=== PATIENT | female | born 1990 | race Caucasian/White ===

== ENCOUNTER 2017-01-29 19:22 | Emergency (ER) | payer OTHER ==
[~2017-01-29] VITALS: Ht 162.6 cm; Wt 72.6 kg
[~2017-01-29 19:22] MED LIST: NORCO 5-325 TA1 EACH PO; TRINATE TABLET1 TAB PO; ZOFRAN ODT4 MG PO; ZOLOFT25 MG PO
[2017-01-29] MEDS ORDERED: VISTARIL 25 MG25 M1 PO (19:26)
[2017-01-29] MEDS ORDERED: MOBIC15 MG PO (20:01)
[2017-01-29] MEDS ORDERED: PREDNISONE 20 M20 MG PO (20:01)
[2017-01-29 20:40] VITALS: BP 107/65
== END 2017-01-29 20:53 | disposition home or self-care (01) ==
LOC: ER 19:22
DX: S01.01XA Laceration without foreign body of scalp, initial encounter (principal); L23.9 Allergic contact dermatitis, unspecified cause; F17.210 Nicotine dependence, cigarettes, uncomplicated; W20.8XXA Other cause of strike by thrown, projected or falling object, initial encounter; Y93.89 Activity, other specified; Y92.89 Other specified places as the place of occurrence of the external cause; Y99.9 Unspecified external cause status

== ENCOUNTER 2019-12-09 07:15 | Emergency (ER) | payer OTHER ==
[~2019-12-09] VITALS: Ht 157.5 cm; Wt 68.0 kg
[~2019-12-09 07:15] MED LIST changes: +CITRATE OF MAG296 ML PO; +KEFLEX500 M1 PO; +KEFLEX500 MG PO; +MOBIC15 MG PO; +NAPROSYN500 MG PO; +PREDNISONE 20 M20 MG PO; +TRAMADOL 50 MG50 MG PO; +VISTARIL 25 MG25 M1 PO
[2019-12-09 08:27] VITALS: BP 126/75
== END 2019-12-09 08:40 | disposition home or self-care (01) ==
LOC: ER 07:15
DX: S63.592A Other specified sprain of left wrist, initial encounter (principal); F17.210 Nicotine dependence, cigarettes, uncomplicated; Z90.49 Acquired absence of other specified parts of digestive tract; Z88.5 Allergy status to narcotic agent; Y08.89XA Assault by other specified means, initial encounter; Y93.89 Activity, other specified; Y92.89 Other specified places as the place of occurrence of the external cause; Y99.8 Other external cause status

== ENCOUNTER 2020-02-11 16:59 | Emergency (ER) | payer OTHER ==
[~2020-02-11] VITALS: Ht 154.9 cm; Wt 56.7 kg
[2020-02-11 17:20] LABS: URINE BILIRUBIN NEGATIVE (Negative); URINE BLOOD NEGATIVE (Negative); URINE CLARITY CLEAR; URINE COLOR YELLOW; URINE GLUCOSE-RANDOM* NEGATIVE (Negative); URINE KETONES NEGATIVE (Negative); URINE LEUKOCYTES-REFLEX NEGATIVE (Negative); URINE NITRITE-REFLEX NEGATIVE (Negative); URINE PROTEIN (DIPSTICK) TRACE (Negative); URINE SPECIFIC GRAVITY 1.025 (1.005-1.035); URINE UROBILINOGEN 0.2 E.U./dl (0.2-1.0)
[2020-02-11] MEDS ORDERED: DOXYCYCLINE 10100 M2 PO (17:28)
[2020-02-11 17:58] LABS: ABSOLUTE NEUTROPHILS 8.1 thou/uL (1.4-8.2); BASOPHILS 0.7 % (0.0-2.0); EOSINOPHILS 0.4 % (0.0-3.0); HEMATOCRIT 41.1 % (37.0-47.0); LYMPHOCYTES 23.8 % (24.0-44.0); MCH 31.2 pg (26.0-34.0); MCHC 34.1 g/dL (28.0-37.0); MCV 91.4 fL (80.0-100.0); MONOCYTES 6.5 % (1.0-8.0); PLATELET COUNT 463 thou/uL (150-400); POLYS 68.6 % (36.0-66.0); RBC 4.49 mil/uL (4.20-5.00); RDW 12.9 % (10.5-14.5); WBC 11.9 thou/uL (4.0-11.0)
[2020-02-11 18:19] LABS: CALCIUM 10.2 mg/dL (8.5-10.1); CREATININE 0.9 mg/dL (0.6-1.0); POTASSIUM 3.4 mmol/L (3.5-5.1)
[2020-02-11 18:23] LABS: ALBUMIN 4.6 g/dL (3.4-5.0); TOTAL BILIRUBIN 0.5 mg/dL (0.2-1.0); TOTAL PROTEIN 9.1 g/dL (6.4-8.2)
[2020-02-11] MEDS ORDERED: DOXYCYCLINE 10100 MG PO (18:50)
[2020-02-11 19:40] VITALS: BP 127/66
--- NOTE | 2020-02-12 11:33 | EKG ---
[facility] [place] [address] ELECTROCARDIOGRAM REPORT Name: CHARLES PEREZ Clif Room #: DEP 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
== END 2020-02-11 23:18 | disposition home or self-care (01) ==
LOC: ER 16:59
PROVIDERS: Physician Assistant
DX: S02.609A Fracture of mandible, unspecified, initial encounter for closed fracture (principal); L03.113 Cellulitis of right upper limb; M54.2 Cervicalgia; R51 Headache; F17.210 Nicotine dependence, cigarettes, uncomplicated; Z90.49 Acquired absence of other specified parts of digestive tract; Z79.899 Other long term (current) drug therapy; Z88.6 Allergy status to analgesic agent; Z91.19 Patient's noncompliance with other medical treatment and regimen; X58.XXXA Exposure to other specified factors, initial encounter; Y93.89 Activity, other specified; Y92.89 Other specified places as the place of occurrence of the external cause; Y99.8 Other external cause status

== ENCOUNTER 2020-07-13 14:38 | Emergency (ER) | payer OTHER ==
[~2020-07-13] VITALS: Ht 157.5 cm; Wt 59.0 kg
[~2020-07-13 14:38] MED LIST changes: +DOXYCYCLINE 10100 M2 PO; +DOXYCYCLINE 10100 MG PO
[2020-07-13 16:48] LABS: ABSOLUTE NEUTROPHILS 5.3 thou/uL (1.4-8.2); BASOPHILS 0.6 % (0.0-2.0); EOSINOPHILS 2.9 % (0.0-3.0); HEMATOCRIT 39.7 % (37.0-47.0); HEMOGLOBIN 13.4 gm/dL (12.0-15.0); LYMPHOCYTES 27.5 % (24.0-44.0); MCH 30.7 pg (26.0-34.0); MCHC 33.7 g/dL (28.0-37.0); MCV 91.1 fL (80.0-100.0); MONOCYTES 9.3 % (1.0-8.0); PLATELET COUNT 341 thou/uL (150-400); POLYS 59.7 % (36.0-66.0); RBC 4.36 mil/uL (4.20-5.00); RDW 13.6 % (10.5-14.5); WBC 8.9 thou/uL (4.0-11.0)
[2020-07-13 16:55] LABS: ANION GAP 6 mmol/L (7-16); BUN 7 mg/dL (7-18); CALCIUM 8.5 mg/dL (8.5-10.1); CHLORIDE 105 mmol/L (98-107); CO2 31 mmol/L (21-32); CREATININE 0.6 mg/dL (0.6-1.0); GLUCOSE 77 mg/dL (74-106); POTASSIUM 3.9 mmol/L (3.5-5.1); SODIUM 142 mmol/L (136-145)
[2020-07-13 17:03] LABS: ALBUMIN 3.3 g/dL (3.4-5.0); DIRECT BILIRUBIN < 0.1 mg/dL (<0.1-0.2); SGOT 24 U/L (15-37); SGPT 20 U/L (30-65); TOTAL BILIRUBIN 0.2 mg/dL (0.2-1.0)
[2020-07-13] MEDS ORDERED: BACTRIM DS TAB1 EACH PO ×2 (18:48→19:23)
[2020-07-13] MEDS ORDERED: MOBIC15 MG PO ×2 (18:48→19:23)
[2020-07-13 19:14] VITALS: BP 97/48
== END 2020-07-13 19:14 | disposition home or self-care (01) ==
LOC: ER 14:38
PROVIDERS: Emergency Medicine
DX: L02.11 Cutaneous abscess of neck (principal); L02.413 Cutaneous abscess of right upper limb; F17.210 Nicotine dependence, cigarettes, uncomplicated; Z90.49 Acquired absence of other specified parts of digestive tract; Z79.899 Other long term (current) drug therapy; Z79.2 Long term (current) use of antibiotics; Z88.5 Allergy status to narcotic agent

== ENCOUNTER 2020-12-07 10:58 | Emergency (ER) | payer OTHER ==
[~2020-12-07] VITALS: Ht 157.5 cm; Wt 65.8 kg
[2020-12-07 10:58] VITALS: BP 126/79
[~2020-12-07 10:58] MED LIST changes: +BACTRIM DS TAB1 EACH PO
== END 2020-12-07 12:49 | disposition left against medical advice (07) ==
LOC: ER 10:58
DX: L03.012 Cellulitis of left finger (principal); F17.210 Nicotine dependence, cigarettes, uncomplicated; Z90.49 Acquired absence of other specified parts of digestive tract; Z79.2 Long term (current) use of antibiotics; Z79.899 Other long term (current) drug therapy; Z88.5 Allergy status to narcotic agent

== ENCOUNTER 2020-12-07 14:36 | Inpatient (IN) | payer OTHER ==
[~2020-12-07] VITALS: Ht 157.5 cm; Wt 59.0 kg
[2020-12-07 16:48] LABS: HEMATOCRIT 34.2 % (37.0-47.0); HEMOGLOBIN 11.8 gm/dL (12.0-15.0); MCHC 34.6 g/dL (28.0-37.0); MCV 89.6 fL (80.0-100.0); RBC 3.82 mil/uL (4.20-5.00); RDW 13.4 % (10.5-14.5); WBC 11.5 thou/uL (4.0-11.0)
[2020-12-07 16:52] LABS: CALCIUM 8.9 mg/dL (8.5-10.1); CREATININE 0.7 mg/dL (0.6-1.0); POTASSIUM 3.9 mmol/L (3.5-5.1)
--- NOTE | 2020-12-07 19:07 | NUR ---
SURGERY AT BEDSIDE.
[2020-12-07 19:16] VITALS: BP 124/78
[2020-12-07 19:23] LABS: AMP/METHAMP POSITIVE (Negative); BARBITURATES Negative (Negative); BENZODIAZEPINES Negative (Negative); COCAINE Negative (Negative); METHADONE Negative (Negative); OPIATES Negative (Negative); PCP Negative (Negative)
[2020-12-07 21:19] VITALS: BP 133/84
--- NOTE | 2020-12-08 00:07 | NUR ---
PT ADMITTED TO THE UNIT AT APPROXIMATELY 2100. PT IS A/O X4 AND IS UP WITH SBA TO THE BR. ROOM AIR, VSS. PT C/O PAIN. PRN PAIN MEDICATION GIVEN DIRECTED. ADMISSION IS COMPLETED. FALL PRECAUTIONS IN PLACE, CALL LIGHT IS WITHIN REACH. WILL CONTINUE TO MONITOR.
[2020-12-08 06:43] LABS: ABSOLUTE NEUTROPHILS 6.8 thou/uL (1.4-8.2); BASOPHILS 0.8 % (0.0-2.0); EOSINOPHILS 0.1 % (0.0-3.0); HEMATOCRIT 35.2 % (37.0-47.0); HEMOGLOBIN 11.9 gm/dL (12.0-15.0); LYMPHOCYTES 16.7 % (24.0-44.0); MCH 30.8 pg (26.0-34.0); MCHC 33.9 g/dL (28.0-37.0); MCV 90.9 fL (80.0-100.0); MONOCYTES 5.8 % (1.0-8.0); PLATELET COUNT 403 thou/uL (150-400); POLYS 76.6 % (36.0-66.0); RBC 3.87 mil/uL (4.20-5.00); RDW 13.7 % (10.5-14.5); WBC 8.8 thou/uL (4.0-11.0)
[2020-12-08 07:09] LABS: CALCIUM 8.3 mg/dL (8.5-10.1); CREATININE 0.6 mg/dL (0.6-1.0); MAGNESIUM 1.7 mg/dL (1.8-2.4)
[2020-12-08 07:39] LABS: FOLIC ACID 19.2 ng/mL (8.6-58.9)
[2020-12-08 08:50] VITALS: BP 114/65
--- NOTE | 2020-12-08 09:53 | HC ---
[facility] [place] [address] CONSULTATION Name: CHARLES PEREZ Room #: 436-P ADM IN M.R.#: [id number] Admission: 12/07/20 Attend Phys: Trinity Wolfe MD Discharge: Date of : [birth year] Report #: [id number] THIS REPORT FOR: cc: FAM - Family physician unknown FAM - Family physician unknown Michael Rojas MD ~ DATE OF SERVICE: 12/08/2020 INFECTIOUS DISEASE CONSULTATION ATTENDING PHYSICIAN: Dr. Wolfe. REASON FOR EVALUATION: Suspected deep infection involving her left thumb, I believe she was bit by a spider. HISTORY OF PRESENT ILLNESS: She is actually quite somnolent and unable to give details of her history, has been in the Emergency Room twice on the day of admission. She had left previously when she was told she may need surgery. On return, a plain film was done, which showed no bony changes. Lactic acid was 1.2. CRP of 28.8. Drug screen was positive for methamphetamine. Coronavirus testing was negative as well. Due to the clinical picture, she did undergo operative I and D of left thumb abscess in the flexor tendon sheath. Cultures are pending. Empirically started on antimicrobials with cefazolin, had been given Zosyn, vancomycin as well. ALLERGIES: MORPHINE. CURRENT MEDICATIONS: Include enoxaparin, Zosyn, acetaminophen, ondansetron as needed, cefazolin. PAST MEDICAL HISTORY: Previous cholecystectomy, left knee surgeries, history of depression. SOCIAL HISTORY: Illicit drug use. Smokes cigarettes 1 pack a day for 15 years, occasional ethanol. FAMILY HISTORY: Noncontributory. REVIEW OF SYSTEMS: Limited due to her somnolence. PHYSICAL EXAMINATION: GENERAL: She appears somewhat chronically ill, undernourished, is difficult to arouse. VITAL SIGNS: Temperature 97.7, pulse 88, respirations 18, blood pressure 133/84. [facility] [address] [place] [address] CONSULTATION Name: CHARLES PEREZ Room #: 436-P [facility].#: [id number] Admission: 12/07/20 Attend Phys: Trinity Wolfe MD Discharge: Date of : [birth year] Report #: [id number] SKIN: Warm, dry, no rashes. HEENT: Normocephalic. NECK: Supple. LUNGS: Diminished breath sounds. HEART: Regular. I do not appreciate a murmur. ABDOMEN: Soft, no apparent peritoneal signs. Left hand has a surgical dressing in place. GENITOURINARY AND RECTAL: Deferred. LABORATORY DATA: CBC: White count of 8.8, H and H 11.9 and 35.2, platelets of 403. Electrolytes: Sodium 137, potassium 4.0, chloride 103, bicarbonate is 26, anion gap of 8, BUN and creatinine 10 and 0.6. Coronavirus testing was negative. ASSESSMENT AND PLAN: Left thumb deep infection, perhaps related to a spider bite or other traumatic injury. We will continue empiric therapy. Await culture results. Wound care as prescribed. We will monitor for evidence of withdrawal and incentive spirometry if she is able. It is difficult to ascertain where she is going to have difficulty with pain at this point. We will monitor expectantly. <ELECTRONICALLY SIGNED> By: Michael Rojas MD 12/08/20 0953 0803 0844 Michael Rojas MD /nt
[2020-12-08 17:10] VITALS: BP 108/68
--- NOTE | 2020-12-08 18:17 | NUR ---
PT ALERT X ORIENTED X 4. ON ROOM AIR. DID DRESSING CHANGE TODAY. PAIN CONTROLLED BY PAIN MEDICINE. WILL CONT TO MONITOR.
[2020-12-08 20:30] VITALS: BP 116/62
--- NOTE | 2020-12-09 04:47 | NUR ---
Assumed pt care at 1900. A/OX4,VSS. Pt is up ad malini in room,encouraged to call as needed for help d/t IV pole and verbalizes understanding. C/o pain to left thumb 04/23,medicated with [place] with relief reported. DSG to left thumb C/D/I,slightly swollen,CMS intact. Pt resting quietly at this time,will continue to monitor pt.
[2020-12-09 07:25] LABS: HEMATOCRIT 33.1 % (37.0-47.0); HEMOGLOBIN 11.3 gm/dL (12.0-15.0); MCH 31.2 pg (26.0-34.0); MCHC 34.2 g/dL (28.0-37.0); MCV 91.2 fL (80.0-100.0); RBC 3.63 mil/uL (4.20-5.00); RDW 13.7 % (10.5-14.5); WBC 6.8 thou/uL (4.0-11.0)
[2020-12-09 07:36] LABS: CALCIUM 8.1 mg/dL (8.5-10.1); CREATININE 0.6 mg/dL (0.6-1.0); POTASSIUM 4.2 mmol/L (3.5-5.1)
[2020-12-09 08:12] VITALS: BP 107/62
--- NOTE | 2020-12-09 09:55 | HC ---
[facility] [address] [place] [address] CONSULTATION Name: CHARLES PEREZ Room #: 436- ADM IN M.R.#: [id number] Admission: 12/07/20 Attend Phys: Trinity Wolfe MD Discharge: Date of : [birth year] Report #: [id number] THIS REPORT FOR: cc: FAM - Family physician unknown FAM - Family physician unknown Sari Barnes MD ~ DATE OF SERVICE: 12/07/2020 HISTORY OF PRESENT ILLNESS: The patient is a 30-year-old female with a changing story. She reported to the ER advanced practitioner that she thought she had a spider bite. She reported to me that maybe there was glass in her thumb. She reported the wound 3 days ago. Upon discussion with the male present with her today, she may have been in an attic where they were moving a glass mirror or glass TV, although there was some type of information about a glass store involved, it is a very unusual and somewhat confusing story. It was very difficult to get any information. She reported significant increase in pain and swelling started approximately 2 days ago. Yesterday, she tried to "dig around to find any glass. None was found." Reports of some purulent drainage. She reported being at [facility] last night at midnight. The patient did not communicate well at all. She was lying in the bed, intermittently appeared to be falling asleep or not paying attention. When questions were asked, she was very quiet in her answers and had difficulty answering. She reports pain in the thumb and pain with movement. No other pain. Denies numbness or tingling. REVIEW OF SYSTEMS: NEUROLOGIC: Denies numbness or tingling. MUSCULOSKELETAL: Denies other acute injury. She has 2 scars on the dorsal aspect of her right hand. She reports one of those was from a childhood injury and the other one was from a bite. PHYSICAL EXAMINATION: GENERAL: The patient is awake, intermittently alert. Again, the exam is very difficult to get any cooperation from this patient. EXTREMITIES: Examination of her left thumb shows a wound volarly at the IP flexion crease. It measures 1 cm. No purulent fluid is noted now. There is significant amount of edema, dryb-xo-tuoyvkha erythema, significant amount of tenderness. The FPL function is difficult to determine secondary to the patient's difficulty cooperating with any type of exam or history. There is tenderness volarly along the flexor tendon sheath. There is no other significant tenderness in the hand. She has brisk capillary refill. Sensation is intact to light touch. LABORATORY DATA: White blood cell count 11.5, hemoglobin 11.8, hematocrit 34.2, [address] [address] CONSULTATION Name: CHARLES PEREZ Room #: [facility]- ADM IN M.R.#: [id number] Admission: 12/07/20 Attend Phys: Trinity Wolfe MD Discharge: Date of : 88 Report #: [id number] platelet count 449. ESR is elevated at 34. CRP is elevated at 28.8. PAST MEDICAL HISTORY: Unable to be obtained. ALLERGIES: No known drug allergies. SOCIAL HISTORY: Smokes a pack a day, does not work, does not report a normal occupation. Drinks alcohol occasionally per them. Denies recreational drug. SURGICAL HISTORY: Knee surgery. ALLERGIES: She reports no known drug allergies. Chart says morphine. RADIOGRAPHS: AP, lateral and oblique view of the left thumb show no evidence of foreign body, no acute osseous abnormality. IMPRESSION AND PLAN: Left thumb volar flexor tenosynovitis with possible foreign body any history of purulent fluid. Discussed the diagnosis as well as treatment options with the patient. At this point, I would recommend surgical debridement. The risks, benefits, alternatives and complications were discussed including but not limited to inability to resolve the infection necessitating more surgery, infection, damage to blood vessels or nerves, wound healing problems and stiffness. Informed consent was obtained. The questions were encouraged and answered. We will proceed with surgery. <ELECTRONICALLY SIGNED> By: Sari Barnes MD 12/09/20 0955 [id number] Sari Barnes MD /nt
--- NOTE | 2020-12-09 14:57 | NUR ---
PT ASKED TO TAKE SHOWER AFTER LUNCH AND ALSO ASKED FOR PAIN MEDICATION. PT AGREED TO TAKE PAIN MEDICATION AFTER SHOWER. PT'S HAND UNWRAPPED AND CLEANED WITH SOAP AND WATER. NEW GUAZE APPLIED AND HAND WRAPPED IN KERLIX. RN TOLD PT THAT WE WILL RE WASH AND CLEAN HAND AGAIN THIS AFTERNOON. PT GIVEN PO PAIN MEDICATION AND AT PAIN REASSESSMENT PT WAS AND IS CURRENTLY ASLEEP. WILL CONTINUE TO MONITOR PT.
[2020-12-09 16:45] VITALS: BP 107/78
--- NOTE | 2020-12-09 17:05 | NUR ---
DRESSING REMOVED FOR SECOND TIME THIS SHIFT, NO DRAINAGE NOTED AT THIS TIME. PT WASHED HANDS WITH SOAP AND WATER FOR 3 MINUTES ORDERED AND NEW GAUZE AND NEW KERLIX APPLIED.
--- NOTE | 2020-12-09 19:20 | NUR ---
REPORT GIVEN TO ON COMING NURSE ARABELLA. PT IS TO HAVE ONE MORE HAND WASH AND DRESSING CHANGE TODAY. THIS INFO WAS COMMUNICATED TO NIGHT NURSE AND PATIENT.
[2020-12-09 22:51] VITALS: BP 123/76
--- NOTE | 2020-12-09 23:47 | NUR ---
PT AOX4, NOTED TO BE LETHARGIC WITH RESTLESSNESS. PT EXPRESSES INCREASE IN ANXIETY AND RESTLESSNESS WITH PAIN. PT RECEIVING PRN IV ATIVAN Q6HR. PT REPORTS 8/10 PAIN IN LEFT HAND. PT RECEIVING PRN NORCO Q4HR WITH PRN IV TORADOL Q8HR X3, PRN IV FENTANYL Q4HR X3, AND PRN PO APAP Q4HR AVAILABLE. PT REPORTS SOB WHILE AT REST, NO DESATURATIONS NOTED, HOB ELEVATED, RELIEF OBTAINED. PT TOLERATING PO INTAKE OF FLUIDS AND REGULAR DIET WITHOUT ISSUE. PT WITHOUT NAUSEA OR EMESIS. PT AMBULATING INDEPENDENTLY IN ROOM AND TO BATHROOM, RESTING IN BED OTHERWISE. FREQUENT REPOSITIONING ENCOURAGED WHILE IN BED, PT SHIFTING INDEPENDENTLY WHILE IN BED. SENSATION INTACT, CAPILLARY REFILL LESS THAN 3SEC IN ALL EXTREMITIES. WOUND CARE COMPLETED; PT OBSERVED APPLYING PERSONAL ALBERT FROM PURSE, PT REDIRECTED, SITE WIPED CLEAN, WASHED AGAIN WITH SOAP AND WATER, GAUZE IN PLACE, WRAPPED WITH KERLIX, SECURED WITH TAPE. PT ENCOURAGED TO NOTIFY STAFF FOR ALL NEEDS, CALL LIGHT WITHIN REACH, BED LOCKED IN LOWEST POSITION, ROOM REMAINS NEAR NURSES STATION, FREQUENT MONITORING WILL CONTINUE.
[2020-12-10 07:15] VITALS: BP 104/70
[2020-12-10] MEDS ORDERED: MINOCYCLINE HC100 M2 PO (11:23)
--- NOTE | 2020-12-10 11:24 | NUR ---
ASSUMED PT CARE AROUND 0700. PT ALERT X ORIENTED X4. ON ROOM AIR. VSS. PAIN CONTROLLED BY PAIN MEDICINE. WOUND DRESSINGS DONE. IV RT FOREARM WITH ANTIBIOTICS RUNNING.ON REGULAR DIET. PATIENT'S GOAL FOR THE DAY IS TO GO HOME. NO BM TODAY. FALL PRECAUTION IN PLACE. CALL LIGHT IN REACH. WILL CONTINUE TO MONITOR.
[2020-12-10 12:29] VITALS: BP 104/70
--- NOTE | 2020-12-10 13:01 | NUR ---
ASSESSMENT: CM REVIEWED CHART AND SPOKE WITH PATIENT. PT IS ALERT AND ORIENTED X4. PT WAS ADMITTED FOR LEFT THUMB ABSESS AND IS S/P I &D. PT HAS HX OF METH USE AND UDS WAS POSITIVE. CM SPOKE WITH PATIENT. PT REPORTS LIVING IN AN APT WITH HER BOYFRIEND. PT REPORTS NO STEPS TO ENTER OR ONCE INSIDE. PT REPORTS BEING FULLY INDEPENDENT WITH ADLS AND AMBULATION. PT IS SHOWING PATIENT PAY. PT REPORTS HAVING NO INSURANCE AND IS NOT CURRENTLY EMPLOYED. PT REPORTS SHE DOES HAVE A PCP DR. DAX LOZANO THAT SHE SEES AT [facility]. CM DISCUSSED ROLE. PT DOES NOT ANTICIPATE HAVING AND NEEDS FROM CM. ID HAS BEEN CONSULTED AND AWAITING FINAL RECS FOR ANTIBIOTICS. PT IS POSSIBLE DISCHARGE TODAY IF ABLE TO SWITCH TO ORAL ANTIBIOTIC.
--- NOTE | 2020-12-10 13:04 | NUR ---
ON-GOING ASSESSMENT: CM LEFT VM WITH SHAJI AT [facility] BED IN ATTEMPTS TO GET AN UPDATE. CM RECEIVED A CALL FROM [facility] WHO IS COVERING AND REPORTS THEY ARE STILL AWAITING INSURANCE AUTH AT THIS TIME. CM FAXED UPDATED CLINICAL WELL NEGATIVE COVID TEST TO [facility] AND AWAITING INPUT. 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 AWAITING INSURANCE AUTH AT THIS TIME.
== END 2020-12-10 13:43 | disposition home or self-care (01) | DRG 580 ==
LOC: ER 14:36 → EROBS 18:49 → 4S 19:18
PROVIDERS: Hospitalist; Nurse Practitioner; Nurse Practitioner Family; ADMIT Internal Medicine; ATTEND Internal Medicine
PROC: 0JBK0ZZ Excision of Left Hand Subcutaneous Tissue and Fascia, Open Approach (ICD-10-PCS; principal; 2020-12-07)
DX: L02.512 Cutaneous abscess of left hand (principal); M00.9 Pyogenic arthritis, unspecified; E46 Unspecified protein-calorie malnutrition; F17.210 Nicotine dependence, cigarettes, uncomplicated; M65.842 Other synovitis and tenosynovitis, left hand; D64.9 Anemia, unspecified; F15.10 Other stimulant abuse, uncomplicated; F32.9 Major depressive disorder, single episode, unspecified; Z20.822 Contact with and (suspected) exposure to COVID-19; Z90.49 Acquired absence of other specified parts of digestive tract; Z79.899 Other long term (current) drug therapy; Z88.6 Allergy status to analgesic agent; Z68.23 Body mass index [BMI] 23.0-23.9, adult; Z28.21 Immunization not carried out because of patient refusal
CPT/HCPCS: 10102; 50101; 50386; 57006; 57091; 57178; 62110; 62900

== ENCOUNTER 2020-12-26 23:18 | Emergency (ER) | payer OTHER ==
[~2020-12-26] VITALS: Ht 160 cm; Wt 63.5 kg
[~2020-12-26 23:18] MED LIST changes: +MINOCYCLINE HC100 M2 PO
[2020-12-27 01:07] LABS: ABSOLUTE NEUTROPHILS 5.2 thou/uL (1.4-8.2); BASOPHILS 0.9 % (0.0-2.0); EOSINOPHILS 1.4 % (0.0-3.0); HEMATOCRIT 38.6 % (37.0-47.0); HEMOGLOBIN 13.1 gm/dL (12.0-15.0); LYMPHOCYTES 28.3 % (24.0-44.0); MCH 30.8 pg (26.0-34.0); MCHC 33.8 g/dL (28.0-37.0); MCV 90.9 fL (80.0-100.0); MONOCYTES 7.3 % (1.0-8.0); PLATELET COUNT 402 thou/uL (150-400); POLYS 62.1 % (36.0-66.0); RBC 4.24 mil/uL (4.20-5.00); RDW 13.5 % (10.5-14.5); WBC 8.5 thou/uL (4.0-11.0)
[2020-12-27 01:16] LABS: CALCIUM 8.7 mg/dL (8.5-10.1); CREATININE 0.8 mg/dL (0.6-1.0); POTASSIUM 3.6 mmol/L (3.5-5.1)
[2020-12-27 01:21] LABS: TOTAL BILIRUBIN 0.5 mg/dL (0.2-1.0); TOTAL PROTEIN 7.4 g/dL (6.4-8.2)
[2020-12-27 06:50] VITALS: BP 136/70
--- NOTE | 2020-12-27 13:03 | EKG ---
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
== END 2020-12-27 06:51 | disposition home or self-care (01) ==
LOC: ER
PROVIDERS: Emergency Medicine
DX: R41.82 Altered mental status, unspecified (principal); T50.905A Adverse effect of unspecified drugs, medicaments and biological substances, initial encounter; Z79.899 Other long term (current) drug therapy; Z88.5 Allergy status to narcotic agent; Y92.89 Other specified places as the place of occurrence of the external cause

== ENCOUNTER 2021-03-24 04:51 | Emergency (ER) | payer OTHER ==
[~2021-03-24] VITALS: Ht 157.5 cm; Wt 61.2 kg
--- NOTE | ~2021-03-24 | EMS ---
[address] [address] EMS Patient Care Report Name: CHARLES PEREZ Room #: DEP [facility] [place]#: [id number] Admission: 03/24/21 Attend Phys: Discharge: 03/24/21 Date of : [birth year] Report #: [id number] THIS REPORT FOR: //name// Report Transmitted: 03/26/2021 14:44 EMS Care Summary [place], [place]/[facility] Incident [phone] @ 03/24/2021 04:06 Incident Location [address] [place] [address] Patient CHARLES PEREZ Female, 30 Years 1990 Patient Address [address] Patient History None Reported, Patient Allergies No known allergies, Patient Medications None Reported, Chief Complaint Confusion Disposition Transported No Lights/[place] Dispatch Reason Sick Person Transported To [facility] Narrative M[address] responded [address] the request of [place] [employer] for a disoriented female pt. pd states that they received a call for a female that was trespassing at the incident location. pd states that upon their arrival, pt seemed disoriented and had trouble answering questions. pt admits to alcohol use. pt denies drug use. [address] [address] EMS Patient Care Report Name: CHARLES PEREZ Room #: DEP ER [place]#: [id number] Admission: 03/24/21 Attend Phys: Discharge: 03/24/21 Date of : [birth year] Report #: [id number] upon ems arrival, pt found sitting upright w/ pd. pt is not alert. pt voices no medical complaints but is unable to answer questions appropriately. for pt safety, pt transported to [facility] for evaluation. pt assisted to stretcher by ems. pt secure to stretcher using seat belts Initial Vitals @04:24P: 110,R: 18,BP: 108/76,Pain: 0/10,GCS: 14,Glucose: 119,SpO2: 98,Revised Trauma: 12, Assessments @04:22MENTAL:Place Oriented,SKIN:HEENT:Eyes: Right Pupil: 3-mm,Eyes: Left Pupil: 3-mm,LUNG SOUNDS:ABDOMEN:PELVIS//GI:EXTREMITIES:Capillary Refill: Left Upper: < 2 Sec,PULSE:Radial: 2+ Normal,NEURO: Impression Confusion/Delirium Procedures @04:22ALS AssessmentResponse: UnchangedSucceeded Timeline 04:05,Call Received 04:05,Dispatch Notified 04:06,Dispatched 04:07,En Route 04:21,On Scene 04:22,At Patient 04:22,ALS Assessment,Response: UnchangedSucceeded, 04:24,BP: 108/76 M,PULSE: 110,RR: 18 R,SPO2: 98 Ox,ETCO2: ,B,PAIN: 0,GCS: 14, 04:35,Depart Scene 04:47,At Destination 04:57,Call Closed Disclaimer v1.1 Copyright 2020 [employer] This EMS Care Summary contains data elements from the applicable legal record (which may be displayed differently). It is designed to provide pertinent information for the following purposes: continuity of care, clinical quality, and state data reporting. The complete legal record is available to ED staff and administrators of the receiving hospital in [employer] Patient Tracker. All data is provided "as is."
[2021-03-24 06:02] LABS: ABSOLUTE NEUTROPHILS 5.6 thou/uL (1.4-8.2); BASOPHILS 0.8 % (0.0-2.0); EOSINOPHILS 1.4 % (0.0-3.0); HEMATOCRIT 40.4 % (37.0-47.0); HEMOGLOBIN 13.6 gm/dL (12.0-15.0); LYMPHOCYTES 26.9 % (24.0-44.0); MCHC 33.7 g/dL (28.0-37.0); MCV 88.9 fL (80.0-100.0); MONOCYTES 8.7 % (1.0-8.0); PLATELET COUNT 382 thou/uL (150-400); POLYS 62.2 % (36.0-66.0); RBC 4.55 mil/uL (4.20-5.00); RDW 13.5 % (10.5-14.5)
[2021-03-24 06:10] LABS: CALCIUM 8.8 mg/dL (8.5-10.1); CREATININE 0.8 mg/dL (0.6-1.0); POTASSIUM 3.7 mmol/L (3.5-5.1)
[2021-03-24 06:16] LABS: ALBUMIN 3.8 g/dL (3.4-5.0); TOTAL BILIRUBIN 0.3 mg/dL (0.2-1.0); TOTAL PROTEIN 7.3 g/dL (6.4-8.2)
[2021-03-24 06:26] VITALS: BP 0/0
--- NOTE | 2021-03-24 10:58 | EKG ---
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
== END 2021-03-24 06:44 | disposition left against medical advice (07) ==
LOC: ER 04:51
PROVIDERS: Emergency Medicine
DX: R41.82 Altered mental status, unspecified (principal); F17.210 Nicotine dependence, cigarettes, uncomplicated; Z90.49 Acquired absence of other specified parts of digestive tract; Z79.899 Other long term (current) drug therapy; Z88.6 Allergy status to analgesic agent